=== PATIENT | female | born 1965 | race Caucasian/White ===

== ENCOUNTER 2019-01-05 11:51 | Emergency (ER) | payer MEDICAID ==
[~2019-01-05] VITALS: Ht 162.6 cm; Wt 166.4 kg
--- NOTE | 2019-01-05 13:22 | NUR ---
AWARE OF GLUCOMETER READING "HIGH" AND PICC NURSE ON HER WAY
[2019-01-05] MEDS ORDERED: insulin regular, human 10 units/0.1 ml syringe IV ONE (13:50)
[2019-01-05 14:32] LABS: BASOPHILS % (AUTO) 0.4 % (0-1); EOSINOPHILS # (AUTO) 0.1 X10'3 (0-0.9); EOSINOPHILS % (AUTO) 0.9 % (0-6); HEMATOCRIT 43.9 % (35.0-45.0); LYMPHOCYTES # (AUTO) 2.2 X10'3 (1.1-4.8); LYMPHOCYTES % (AUTO) 29.2 % (21-51); MEAN CORPUSCULAR HEMOGLOBIN 31.6 PG (27.0-31.0); MEAN CORPUSCULAR HGB CONC 34.3 g/dL (33.0-36.5); MEAN CORPUSCULAR VOLUME 92.1 FL (78-98); MEAN PLATELET VOLUME 8.8 FL (7.4-10.4); MONOCYTES # (AUTO) 0.5 X10'3 (0-0.9); MONOCYTES % (AUTO) 7.2 % (2-12); NEUTROPHILS # (AUTO) 4.7 X10'3 (1.8-7.7); NEUTROPHILS % (AUTO) 62.3 % (42-75); PLATELET COUNT 182 X10'3 (140-440); RED BLOOD COUNT 4.76 X10'6 (4.20-5.60); RED CELL DISTRIBUTION WIDTH 14.6 % (11.5-14.5); WHITE BLOOD COUNT 7.6 X10'3 (4.5-11.0)
[2019-01-05 14:51] LABS: ALANINE AMINOTRANSFERASE 6 U/L (12-78); ALBUMIN 2.6 G/DL (3.4-5.0); ALBUMIN/GLOBULIN RATIO 0.5 (1.1-1.5); ALKALINE PHOSPHATASE 113 IU/L (46-116); ANION GAP 17 (8-16); ASPARTATE AMINO TRANSFERASE 9 U/L (10-37); BILIRUBIN,TOTAL 0.4 MG/DL (0.1-1.0); BLOOD UREA NITROGEN 12 MG/DL (7-18); BUN/CREATININE RATIO 13.6 (6.6-38.0); CALCIUM 8.7 MG/DL (8.5-10.1); CHLORIDE 89 MMOL/L (99-107); CREATININE 0.88 MG/DL (0.40-0.90); MAGNESIUM 1.6 MG/DL (1.5-2.4); PHOSPHORUS 2.9 MG/DL (2.3-4.5); SODIUM 131 MMOL/L (135-145); TOTAL CARBON DIOXIDE 24.8 MMOL/L (24-32); TOTAL PROTEIN 7.7 G/DL (6.4-8.2); eGFR 67 ML/MIN
[2019-01-05 14:58] LABS: GLUCOSE 560 MG/DL (70-104); POTASSIUM 3.8 MMOL/L (3.5-5.1)
--- NOTE | 2019-01-05 17:23 | NUR ---
AWAITING TRANSPORTATION. DAUGHTER WILL BE HERE AT 8PM. PHONE: [phone]
[2019-01-05 20:14] VITALS: BP 111/69
== END 2019-01-05 20:16 | disposition home or self-care (01) ==
LOC: ER 11:52
DX: E11.65 Type 2 diabetes mellitus with hyperglycemia (principal); R07.9 Chest pain, unspecified; E66.01 Morbid (severe) obesity due to excess calories
CPT/HCPCS: 36415; 80053; 82948; 83735; 84100; 84484; 85025; 96374; 99284; J1815

== ENCOUNTER 2019-06-14 15:23 | Inpatient (IN) | payer MEDICAID ==
[~2019-06-14] VITALS: Ht 162.6 cm; Wt 159.1 kg
[2019-06-14] MEDS ORDERED: normal saline 1000ml 1,000 ML IV ONE (15:38)
[2019-06-14] MEDS ORDERED: nitroGLYCERIN 0.4mg/hour patch TD ONE (15:40)
[2019-06-14 16:16] LABS: BASOPHILS % (AUTO) 0.4 % (0-1); EOSINOPHILS # (AUTO) 0.3 X10'3 (0-0.9); EOSINOPHILS % (AUTO) 3.6 % (0-6); HEMATOCRIT 45.6 % (35.0-45.0); HEMOGLOBIN 15.6 g/dl (12.0-16.0); LYMPHOCYTES # (AUTO) 2.6 X10'3 (1.1-4.8); LYMPHOCYTES % (AUTO) 27.2 % (21-51); MEAN CORPUSCULAR HEMOGLOBIN 31.1 PG (27.0-31.0); MEAN CORPUSCULAR HGB CONC 34.2 g/dL (33.0-36.5); MEAN CORPUSCULAR VOLUME 90.8 FL (78-98); MEAN PLATELET VOLUME 8.8 FL (7.4-10.4); MONOCYTES # (AUTO) 0.5 X10'3 (0-0.9); NEUTROPHILS # (AUTO) 6.1 X10'3 (1.8-7.7); NEUTROPHILS % (AUTO) 63.8 % (42-75); PLATELET COUNT 283 X10'3 (140-440); RED BLOOD COUNT 5.03 X10'6 (4.20-5.60); RED CELL DISTRIBUTION WIDTH 14.4 % (11.5-14.5); WHITE BLOOD COUNT 9.5 X10'3 (4.5-11.0)
[2019-06-14 16:24] LABS: PARTIAL THROMBOPLASTIN TIME 26 SECONDS (22-32)
[2019-06-14 16:51] LABS: ALANINE AMINOTRANSFERASE 20 U/L (12-78); ALBUMIN/GLOBULIN RATIO 0.8 (1.1-1.5); ALKALINE PHOSPHATASE 93 IU/L (46-116); ANION GAP 10 (8-16); ASPARTATE AMINO TRANSFERASE 19 U/L (10-37); BILIRUBIN,TOTAL 0.2 MG/DL (0.1-1.0); BLOOD UREA NITROGEN 12 MG/DL (7-18); BUN/CREATININE RATIO 12.5 (6.6-38.0); CALCIUM 8.3 MG/DL (8.5-10.1); CHLORIDE 104 MMOL/L (99-107); CREATININE 0.96 MG/DL (0.40-0.90); GLUCOSE 367 MG/DL (70-104); MAGNESIUM 1.4 MG/DL (1.5-2.4); SODIUM 141 MMOL/L (135-145); TOTAL CARBON DIOXIDE 27.3 MMOL/L (24-32); TOTAL PROTEIN 6.9 G/DL (6.4-8.2); eGFR 61 ML/MIN
[2019-06-14 16:53] LABS: POTASSIUM 2.9 MMOL/L (3.5-5.1)
[2019-06-14] MEDS ORDERED: potassium Cl 20 mEq SR tablet PO ONE (17:40)
[2019-06-14] MEDS ORDERED: magnesium oxide 400mg tablet PO ONE (17:40)
[2019-06-14] MEDS ORDERED: magnesium 2GM in 50ml NS 50 ML IV ONE (17:40)
[2019-06-14] MEDS ORDERED: potassium 10mEq/100ml NS w/LIDOcaine (10mg/bag) IV ONE (17:40)
[2019-06-14] MEDS ORDERED: MESSAGE TO PHARMACY PO ONE (17:45)
[2019-06-14] MEDS ORDERED: magnesium Cl slow-release 64mg tablet PO PRN (17:45)
[2019-06-14] MEDS ORDERED: dextrose 50%-water 50ml dispensing syringe IV PRN ×2 (17:45)
[2019-06-14] MEDS ORDERED: acetaminophen 650mg rectal suppository RC PRN (17:45)
[2019-06-14] MEDS ORDERED: aminophylline 250mg/10ml inj. IV PRN (17:45)
[2019-06-14] MEDS ORDERED: potassium CL 10mEq/100ml bag 100 ML IV PRN ×2 (17:45)
[2019-06-14] MEDS ORDERED: magnesium 2GM in 50ml NS 50 ML IV PRN (17:45)
[2019-06-14] MEDS ORDERED: nitroGLYCERIN 0.4mg SUBLingual tab SL PRN (17:45)
[2019-06-14] MEDS ORDERED: magnesium 4gm in 100ml NS 100 ML IV PRN (17:45)
[2019-06-14] MEDS ORDERED: mag hydrox/Alum hydrox/simeth 30ml oral suspension PO PRN (17:45)
[2019-06-14] MEDS ORDERED: regadenoson 0.4mg/5ml syringe IV ONE (17:45)
[2019-06-14] MEDS ORDERED: diphenhydrAMINE 25mg capsule PO PRN (17:45)
[2019-06-14] MEDS ORDERED: ondansetron/PF 4mg/2ml inj IV PRN (17:45)
[2019-06-14] MEDS ORDERED: HYDROcodone/acetaminophen 5mg/325mg tablet PO PRN (17:45)
[2019-06-14] MEDS ORDERED: dextrose ORAL solution 15 GM/59 ML bottle PO PRN ×2 (17:45)
[2019-06-14] MEDS ORDERED: metoprolol tartrate 1mg/ml inj IV PRN (17:45)
[2019-06-14] MEDS ORDERED: glucagon, human recombinant 1mg kit SUBCUT PRN (17:45)
[2019-06-14] MEDS ORDERED: morphine 2 MG/ML inj. syringe IV PRN ×2 (17:45)
[2019-06-14] MEDS ORDERED: magnesium hydroxide 30ml (MOM) UD suspension PO PRN (17:45)
[2019-06-14] MEDS ORDERED: acetaminophen 325mg tablet PO PRN ×2 (17:45)
[2019-06-14] MEDS ORDERED: bisacodyl 10mg suppository rectal RC PRN (17:45)
[2019-06-14] MEDS ORDERED: APIX2.5T PO (17:57)
[2019-06-14] MEDS ORDERED: MECL-184 PO (17:57)
[2019-06-14] MEDS ORDERED: insulin SQ (17:57)
[2019-06-14] MEDS ORDERED: VENL75TA4 PO (17:57)
[2019-06-14] MEDS ORDERED: METF-436 PO (17:57)
[2019-06-14] MEDS ORDERED: LEVO300T2 PO (17:57)
[2019-06-14] MEDS ORDERED: LISI2.5T2 PO (17:57)
[2019-06-14] MEDS ORDERED: GABA-530 PO (17:57)
--- NOTE | 2019-06-14 17:58 | NUR ---
Patient does not have medication list with her, medications from memory, unknown on many details.
[2019-06-14 18:28] LABS: HEMOGLOBIN A1C 8.8 % (4.5-6.2)
[2019-06-14 18:30] LABS: CLARITY,URINE SLIGHTLY CLOUDY (Clear); COLOR,URINE YELLOW (Yellow); GLUCOSE, URINE >=1000 mg/dl (Neg); KETONES,URINE TRACE mg/dl (Neg); LEUKOCYTE ESTERASE ,URINE NEGATIVE (Neg); NITRITES, URINE POSITIVE (Neg); OCCULT BLOOD,URINE SMALL (Neg); PROTEIN,URINE NEGATIVE (Neg); UROBILINOGEN,URINE 0.2 E.U/dL (0.2-1.0)
[2019-06-14 18:41] LABS: UA COLLECTION TYPE NON-SPECIFIED
[2019-06-14 18:43] LABS: BACTERIA,URINE 1+ /HPF (Neg); RBC,URINE 0-2 /HPF (0-2)
[2019-06-14 18:44] LABS: SQUAMOUS EPITHELIAL CELL,UR MODERATE /LPF (FEW); YEAST FEW /HPF (NEGATIVE)
[2019-06-14] MEDS ORDERED: ipratropium/albuterol 3ml nebule NEB PRN (18:50)
[2019-06-14] MEDS ORDERED: regadenoson 0.4mg/5ml syringe IV PRN (19:05)
[2019-06-14] MEDS: normal saline 1000ml 1,000 ML IV SCH (19:21)
[2019-06-14] MEDS: K and/or MAG REPLACEMENT MC SCH (20:00)
[2019-06-14 20:06] LABS: URINE AMPHETAMINE SCREEN NEGATIVE (Neg); URINE BARBITUATE SCREEN NEGATIVE (Neg); URINE BENZODIAZEPINES SCREEN NEGATIVE (Neg); URINE CANNABINOID SCREEN POSITIVE (Neg); URINE COCAINE SCREEN NEGATIVE (Neg); URINE METHADONE SCREEN NEGATIVE (Neg); URINE OPIATE SCREEN NEGATIVE (Neg); URINE PHENCYCLIDINE SCREEN NEGATIVE (Neg)
[2019-06-14] MEDS: ipratropium/albuterol 3ml nebule NEB SCH (20:22)
[2019-06-14 21:00] VITALS: BP 99/54
[2019-06-14] MEDS: heparin, porcine 5000 units/ml vial SQ SCH (22:22)
[2019-06-14] MEDS: potassium Cl 20 mEq SR tablet PO PRN (22:23)
[2019-06-14] MEDS: insulin glargine (Lantus) pen - multi-dose SQ SCH (22:32)
[2019-06-14] MEDS: insulin Lispro (HumaLOG) vial - multi-dose SQ SCH (22:34)
[2019-06-15] VITALS (11 sets, daily range): BP systolic 109–132; BP diastolic 58–72
[2019-06-15] MEDS: ipratropium/albuterol 3ml nebule NEB SCH ×4 (02:20→20:12)
[2019-06-15] MEDS: potassium Cl 20 mEq SR tablet PO PRN (02:43)
[2019-06-15] MEDS: HYDROcodone/acetaminophen 10/325mg tab PO PRN ×2 (02:47→18:46)
[2019-06-15 06:06] LABS: BASOPHILS % (AUTO) 0.3 % (0-1); EOSINOPHILS # (AUTO) 0.4 X10'3 (0-0.9); HEMATOCRIT 41.5 % (35.0-45.0); HEMOGLOBIN 14.1 g/dl (12.0-16.0); LYMPHOCYTES % (AUTO) 37.1 % (21-51); MEAN CORPUSCULAR HEMOGLOBIN 31.2 PG (27.0-31.0); MEAN CORPUSCULAR HGB CONC 33.9 g/dL (33.0-36.5); MEAN CORPUSCULAR VOLUME 91.9 FL (78-98); MEAN PLATELET VOLUME 9.2 FL (7.4-10.4); MONOCYTES # (AUTO) 0.5 X10'3 (0-0.9); MONOCYTES % (AUTO) 6.2 % (2-12); NEUTROPHILS # (AUTO) 4.1 X10'3 (1.8-7.7); NEUTROPHILS % (AUTO) 51.4 % (42-75); PLATELET COUNT 245 X10'3 (140-440); RED BLOOD COUNT 4.52 X10'6 (4.20-5.60); RED CELL DISTRIBUTION WIDTH 14.6 % (11.5-14.5)
[2019-06-15 06:13] LABS: ALANINE AMINOTRANSFERASE 9 U/L (12-78); ALBUMIN 2.7 G/DL (3.4-5.0); ALBUMIN/GLOBULIN RATIO 0.8 (1.1-1.5); ALKALINE PHOSPHATASE 83 IU/L (46-116); ANION GAP 6 (8-16); ASPARTATE AMINO TRANSFERASE 13 U/L (10-37); BILIRUBIN,TOTAL 0.2 MG/DL (0.1-1.0); BLOOD UREA NITROGEN 16 MG/DL (7-18); BUN/CREATININE RATIO 21.6 (6.6-38.0); CALCIUM 8.4 MG/DL (8.5-10.1); CHLORIDE 105 MMOL/L (99-107); CREATININE 0.74 MG/DL (0.40-0.90); GLUCOSE 319 MG/DL (70-104); SODIUM 141 MMOL/L (135-145); TOTAL PROTEIN 6.2 G/DL (6.4-8.2); eGFR 82 ML/MIN
[2019-06-15 06:23] LABS: CHOL/HDL RATIO 6.4 (0.00-4.99); CHOLESTEROL 173 MG/DL (0-200); HDL CHOLESTEROL 27 MG/DL (35-60); LDL CHOLESTEROL 82 MG/DL (50-100); MAGNESIUM 1.8 MG/DL (1.5-2.4); PHOSPHORUS 3.4 MG/DL (2.3-4.5); TRIGLYCERIDES 482 MG/DL (20-135)
--- NOTE | 2019-06-15 06:25 | NUR ---
Problems reprioritized. Patient report given, questions answered & plan of care reviewed with Catie QUICK.
[2019-06-15] MEDS: normal saline 1000ml 1,000 ML IV SCH ×2 (06:40→20:00)
--- NOTE | 2019-06-15 06:40 | NUR ---
Patient in room PCU 3016. I have received report from Danica QUICK and Aneta QUICK and had the opportunity to ask questions and assume patient care.
[2019-06-15] MEDS: insulin Lispro (HumaLOG) vial - multi-dose SQ SCH ×4 (07:49→22:02)
[2019-06-15] MEDS: K and/or MAG REPLACEMENT MC SCH ×2 (08:00→20:00)
[2019-06-15] MEDS: heparin, porcine 5000 units/ml vial SQ SCH ×2 (08:26→20:57)
[2019-06-15] MEDS ORDERED: LISI10TA4 PO (10:11)
[2019-06-15] MEDS ORDERED: INSU100I31 SQ (10:45)
[2019-06-15] MEDS ORDERED: INSU100V40 SQ (10:45)
--- NOTE | 2019-06-15 12:26 | NUR ---
Wound care POC. Arrived at bedside for assessment. Pt not in room at the time of arrival. Will attempt to assess again.
--- NOTE | 2019-06-15 14:20 | NUR ---
DM consult: Pt with A1c 8.8 seen at bedside. Pt reports previously with A1c 16-17s with BG in the 800s. Pt states she normally takes her DM medications per rx however will sometimes withhold Metformin d/t diarrhea and wont always take her insulin if she is feeling sick despite sometimes have a BG in the 500s. Pt also reports that she used to check her BG levels around seven times a day but doesn't always consistently check them as of recently. RD discussed the importance of taking medications per rx and frequently checking BG levels and encouraged pt to discuss symptoms with MD. Pt provided with written and verbal DM education with referral to outpatient CDE course. Pt currently on a heart healthy diet however documented as NPO. D/w RN recommendation for the addition of CHO controlled diet. Pt endorses a good appetite and requests salsa TID, fresh fruit TID, and no sweetener. Pt agrees to double protein TID for satiety. All food preferences were d/w dietary. Pt denies food allergies or difficulty chewing/swallowing however states occasional difficulty with swallowing thin liquids. Pt states this has gone on intermittently for about a month and is able to clear with a double swallow. RD consulted ST for BSS. Pt denies constipation/diarrhea at this time however reports frequent diarrhea at home and states it's possibly r/t Metformin or dairy intake. RD provided verbal diarrhea nutrition therapy education and encouraged pt to pay attention to PO intake when diarrhea occurs to monitor for lactose intolerance. Pt states she takes Imodium at home which she reports last taking the day [employer]. All of patient's questions were answered at this time. RD contact information provided. Will remain available. Addendum: 06/15/19 at [address] Amended: Links added.
[2019-06-15] MEDS: nystatin 15 GM powder TP SCH ×2 (14:34→22:16)
--- NOTE | 2019-06-15 14:43 | NUR ---
PAGER ID: [phone] [facility] MESSAGE: re: [id number] Zandra Chucrh. Stress Test is resulted. Patient asking if she can eat. MERT [id number]
--- NOTE | 2019-06-15 15:40 | NUR ---
Dr. Hernandez consulted Dr. Hernandez to look at her Stress Test. Dr. Hernandez called the floor and stated she does not need a cardiology consult.
[2019-06-15] MEDS: levoTHYROXINE 25mcg tablet PO SCH (16:00)
[2019-06-15] MEDS: levoTHYROXINE 100mcg tablet PO SCH (16:00)
[2019-06-15] MEDS: CefTRIAXone/D5W-Rocephin 1gm 50 ML IV SCH (16:11)
--- NOTE | 2019-06-15 18:30 | NUR ---
Problems reprioritized. Patient report given, questions answered & plan of care reviewed with Symone QUICK.
[2019-06-15] MEDS: gabapentin 100mg capsule PO SCH (21:01)
[2019-06-15] MEDS: insulin glargine (Lantus) pen - multi-dose SQ SCH (22:05)
[2019-06-16] MEDS: HYDROcodone/acetaminophen 10/325mg tab PO PRN (01:22)
[2019-06-16 02:00] VITALS: BP 123/72
[2019-06-16] MEDS: ipratropium/albuterol 3ml nebule NEB SCH ×3 (02:37→14:14)
[2019-06-16 05:56] LABS: BASOPHILS % (AUTO) 0.4 % (0-1); EOSINOPHILS # (AUTO) 0.4 X10'3 (0-0.9); EOSINOPHILS % (AUTO) 6.9 % (0-6); HEMATOCRIT 41.4 % (35.0-45.0); HEMOGLOBIN 13.9 g/dl (12.0-16.0); LYMPHOCYTES # (AUTO) 1.4 X10'3 (1.1-4.8); LYMPHOCYTES % (AUTO) 23.4 % (21-51); MEAN CORPUSCULAR HEMOGLOBIN 31.2 PG (27.0-31.0); MEAN CORPUSCULAR HGB CONC 33.5 g/dL (33.0-36.5); MONOCYTES # (AUTO) 0.4 X10'3 (0-0.9); MONOCYTES % (AUTO) 6.3 % (2-12); NEUTROPHILS # (AUTO) 3.9 X10'3 (1.8-7.7); PLATELET COUNT 229 X10'3 (140-440); RED BLOOD COUNT 4.45 X10'6 (4.20-5.60); RED CELL DISTRIBUTION WIDTH 14.6 % (11.5-14.5); WHITE BLOOD COUNT 6.2 X10'3 (4.5-11.0)
[2019-06-16 06:30] LABS: ALANINE AMINOTRANSFERASE 15 U/L (12-78); ALBUMIN 2.8 G/DL (3.4-5.0); ALBUMIN/GLOBULIN RATIO 0.8 (1.1-1.5); ALKALINE PHOSPHATASE 80 IU/L (46-116); ANION GAP 12 (8-16); ASPARTATE AMINO TRANSFERASE 11 U/L (10-37); BILIRUBIN,TOTAL 0.3 MG/DL (0.1-1.0); BLOOD UREA NITROGEN 13 MG/DL (7-18); BUN/CREATININE RATIO 19.1 (6.6-38.0); CALCIUM 8.4 MG/DL (8.5-10.1); CHLORIDE 106 MMOL/L (99-107); CREATININE 0.68 MG/DL (0.40-0.90); GLUCOSE 262 MG/DL (70-104); MAGNESIUM 1.7 MG/DL (1.5-2.4); PHOSPHORUS 3.4 MG/DL (2.3-4.5); POTASSIUM 3.3 MMOL/L (3.5-5.1); SODIUM 144 MMOL/L (135-145); TOTAL CARBON DIOXIDE 26.3 MMOL/L (24-32); TOTAL PROTEIN 6.3 G/DL (6.4-8.2); eGFR > 90 ML/MIN
--- NOTE | 2019-06-16 06:34 | NUR ---
Patient in room PCU 3016. I have received report from [facility] Ashby and had the opportunity to ask questions and assume patient care. Patient awake in bed and in no acute distress.
[2019-06-16 07:00] VITALS: BP 120/61
[2019-06-16] MEDS: CefTRIAXone/D5W-Rocephin 1gm 50 ML IV SCH (07:56)
[2019-06-16] MEDS: gabapentin 100mg capsule PO SCH ×2 (07:57→12:34)
[2019-06-16] MEDS: levoTHYROXINE 100mcg tablet PO SCH (07:57)
[2019-06-16] MEDS: levoTHYROXINE 25mcg tablet PO SCH (07:58)
[2019-06-16] MEDS ORDERED: lisinopril 10 MG tablet PO SCH (08:00)
[2019-06-16] MEDS ORDERED: venlafaxine XR 75mg capsule (Q24H) PO SCH (08:00)
[2019-06-16] MEDS: heparin, porcine 5000 units/ml vial SQ SCH (08:00)
[2019-06-16] MEDS: insulin Lispro (HumaLOG) vial - multi-dose SQ SCH ×2 (08:08→12:39)
[2019-06-16] MEDS: K and/or MAG REPLACEMENT MC SCH (08:14)
[2019-06-16] MEDS: potassium Cl 20 mEq SR tablet PO PRN ×2 (08:14→12:33)
[2019-06-16] MEDS: nystatin 15 GM powder TP SCH ×2 (08:14→12:34)
[2019-06-16] MEDS ORDERED: FOSFOMYCIN TROMETHAMINE 3 GM PACKET PO ONE (09:10)
[2019-06-16] MEDS: normal saline 1000ml 1,000 ML IV SCH (09:20)
[2019-06-16 11:00] VITALS: BP 117/65
[2019-06-16 15:00] VITALS: BP 102/47
--- NOTE | 2019-06-16 16:12 | NUR ---
Called report to [facility] to [facility]. Awaiting pickup time at 1630
--- NOTE | 2019-06-16 17:35 | NUR ---
Wound picture was not taken prior to transfer. Wound care was provided at the beginning of the shift, and forgot to take a picture prior to transfer. Patient's wound had no changes from the pictures that were taken 2 days ago. Addendum: 06/16/19 at 1737 by Eliza Jimenez RN Amended: Links added.
[2019-06-16] MEDS ORDERED: lactobacillus rhamnosus 10,000 MMU CELLS/CAPSULE PO SCH (20:00)
== END 2019-06-16 17:46 | DRG 243 ==
LOC: ER 15:24 → ED HOLD 17:41 → PCU 3S 20:30
PROVIDERS: ADMIT Family Medicine; ATTEND Family Medicine
PROC: 5A09357 Assistance with Respiratory Ventilation, Less than 24 Consecutive Hours, Continuous Positive Airway Pressure (ICD-10-PCS; principal; 2019-06-14)
PROC: 5A09357 Assistance with Respiratory Ventilation, Less than 24 Consecutive Hours, Continuous Positive Airway Pressure (ICD-10-PCS; 2019-06-15)
PROC: 4A02XM4 Measurement of Cardiac Total Activity, External Approach (ICD-10-PCS; 2019-06-15)
PROC: 5A09357 Assistance with Respiratory Ventilation, Less than 24 Consecutive Hours, Continuous Positive Airway Pressure (ICD-10-PCS; 2019-06-16)
DX: K21.9 Gastro-esophageal reflux disease without esophagitis (principal); E11.40 Type 2 diabetes mellitus with diabetic neuropathy, unspecified; E87.2 Acidosis; M94.0 Chondrocostal junction syndrome [Tietze]; B96.4 Proteus (mirabilis) (morganii) as the cause of diseases classified elsewhere; E03.9 Hypothyroidism, unspecified; E83.42 Hypomagnesemia; E87.6 Hypokalemia; E66.2 Morbid (severe) obesity with alveolar hypoventilation; R07.89 Other chest pain; R94.6 Abnormal results of thyroid function studies; I10 Essential (primary) hypertension; I48.0 Paroxysmal atrial fibrillation; J44.9 Chronic obstructive pulmonary disease, unspecified; N39.0 Urinary tract infection, site not specified; Z66 Do not resuscitate; Z79.890 Hormone replacement therapy; Z82.5 Family history of asthma and other chronic lower respiratory diseases; Z87.891 Personal history of nicotine dependence; Z90.710 Acquired absence of both cervix and uterus; Z91.19 Patient's noncompliance with other medical treatment and regimen; Z68.44 Body mass index [BMI] 60.0-69.9, adult; Z88.8 Allergy status to other drugs, medicaments and biological substances
CPT/HCPCS: 36415; 71045; 78452; 80053; 80061; 80305; 81001; 82948; 83036; 83605; 83735; 83880; 84100; 84443; 84484; 85025; 85610; 85730; 87040; 87077; 87081; 87088; 87186; 92508; 92616; 93005; 93017; 93306; 94640; 94660; 94760; 97110; 97161; 97530; 99285; A9500; G0378; J0696; J1644; J1815; J2785; J3475; J3480; J7030